=== PATIENT | male | born 1950 | race Caucasian/White ===

== ENCOUNTER → 2018-02-28 | Day surgery (SDC) | payer OTHER, MEDICARE ==
[2018-02-27 17:17] LABS: BASOPHILS % 0.3 % (0.0-1.0); EOSINOPHILS # (AUTO) 0.1 (0.0-0.4); EOSINOPHILS % 3.1 % (0.0-6.0); HEMATOCRIT 37.3 % (38.2-49.6); HEMOGLOBIN 12.7 g/dL (14.0-18.0); LYMPHOCYTES # (AUTO) 0.5 (1.0-3.2); LYMPHOCYTES % 15.4 % (18.0-39.1); MEAN CORPUSCULAR HEMOGLOBIN 31.9 pg (28-32); MEAN CORPUSCULAR VOLUME 93.7 fL (81-99); MONOCYTES # (AUTO) 0.6 (0.2-0.8); MONOCYTES % 18.5 % (4.4-11.3); NEUTROPHILS % 62.4 % (38.7-80.0); PLATELET COUNT 126 x10e3/uL (140-360); RED BLOOD COUNT 3.98 x10e6/uL (4.3-5.7); RED CELL DISTRIBUTION WIDTH 12.5 % (11.7-14.4)
[2018-02-27 17:36] LABS: ALANINE AMINOTRANSFERASE 30 IU/L (0-55); ALBUMIN 3.5 g/dL (3.5-5.0); ALBUMIN/GLOBULIN RATIO 0.9 (0.8-2.0); ALKALINE PHOSPHATASE 67 IU/L (40-150); ANION GAP 12.4 mmol/L (8-16); BLOOD UREA NITROGEN 14 mg/dL (7-26); BUN/CREATININE RATIO 18 (6-25); CALCIUM 9.2 mg/dL (8.4-10.2); CARBON DIOXIDE 28 mmol/L (22-29); CHLORIDE 101 mmol/L (98-107); CHOL/HDL RATIO 2.9 (3.9-4.7); CHOLESTEROL 163 MD/DL (0-199); EST GLOMERULAR FILTRATION RATE > 60 ML/MIN (60-); GLUCOSE 85 mg/dL (74-118); HDL CHOLESTEROL 57 MG/DL (40-60); LDL CHOLESTEROL 93 MG/DL (60-130); POTASSIUM 4.4 mmol/L (3.5-5.1); SODIUM 137 mmol/L (136-145); TRIGLYCERIDES 67 MG/DL (0-149)
[2018-02-28] VITALS (9 sets, daily range): BP systolic 134–158; BP diastolic 64–98
[~2018-02-28] VITALS: Ht 177.8 cm; Wt 59.0 kg
[~2018-02-28] MED LIST: ACETAMINOPHEN325 M1 PO; ALPRAZOLAM 0.5 MG TAB ONE; DIPHENHYDRAMINE HCL 25 MG CAP ONE; FENTANYL CITRATE/PF 100MCG/2 ML INJ ONE; HEPARIN SOD (PORCINE) 1000 UNIT/ML 30ML ONE; HEPARIN SOD/SOD CHLORIDE 2,000 ML ONE; IOPAMIDOL 370 MG/ML 200 ML INFUS..BTL INJ ONE; LIDOCAINE HCL 2% LOCAL 20 ML VIAL ONE; MIDAZOLAM HCL 2 MG/2 ML VIAL ONE; NITROGLYCERIN/D5W 200 MCG/ML 250 ML ONE; OPANA10 MG PO; SODIUM CHLORIDE 0.9% 1000ML 1,000 ML ONE; VERAPAMIL HCL 2.5 MG/ML 2 ML VIAL ONE
--- OUTSIDE RECORDS SUMMARY | 2018-02-28 11:43 | XMS REPORT | Summary of Care ---
Author Author [facility] Organization [facility] Address Unknown Phone Unavailable Encounter FABIO Lewis(TRAE) [id number] Date(s): 09/11/16 - 09/11/16 [facility] [address], [place], [place] [address]- [phone] Discharge Diagnosis: Contusion of rib on right side Discharge Disposition: Home or Self Care Attending Physician: Adam Schmidt MD Vital Signs Most recent to 1 oldest [Reference Range]: Height 177.8 cm (09/11/16 3:08 PM) Temperature Oral 97.6 DegF [96.4-99.1 DegF] (09/11/16 3:08 PM) Blood Pressure 166/77 mmHg [90-140/60-90 mmHg] *HI* (09/11/16 3:08 PM) Respiratory Rate 20 BRMIN [14-20 BRMIN] (09/11/16 3:08 PM) Peripheral Pulse 61 bpm Rate [60-100 bpm] (09/11/16 3:08 PM) Weight 61.364 kg (09/11/16 3:08 PM) Body Mass Index 19.41 m2 (09/11/16 3:08 PM) Problem List No data available for this section Allergies, Adverse Reactions, Alerts Substance Reaction Severity Status NKDA Active Medications ketOROLAC 15 mg/mL injectable solution 15 mg, 0.5 mL, Route: IM, Drug form: INJ, ONCE, Dosing Weight 61.364, kg, Priori ty: STAT, Start date: 09/11/16 17:23:00 CDT, Stop date: 09/11/16 17:23:00 CDT Notes: (Same as:Toradol) IV bolus must be given >15 seconds. Give IM administration slowly and deeply into the muscle.Not for use > 4 days MEDICATION WASTE Product Size: 30 mgProduct Wasted: 15 mg Start Date: 09/11/16 Stop Date: 09/11/16 Status: Completed [place] 10/325 oral tablet 1 tab, Route: PO, Drug Form: TAB, Dosing Weight 61.364, kg, ONCE, STAT, Start da te: 09/11/16 16:34:00 CDT, Stop date: 09/11/16 16:34:00 CDT Start Date: 09/11/16 Stop Date: 09/11/16 Status: Completed Results No data available for this section Immunizations No data available for this section Procedures Procedure Date Related Diagnosis Body Site Laminectomy1 1lumbar Social History Social History Type Response Smoking Status Current every day smoker; Type: Cigarettes; Previous treatment: None; Ready to change: No; Concerns about tobacco use in household: No; Exposure to Tobacco Smoke None; Cigarette Smoking Last 365 Days No; Reg Smoking Cessation Counseling No Assessment and Plan No data available for this section
--- OUTSIDE RECORDS SUMMARY | 2018-02-28 11:43 | XMS REPORT | Continuity of Care Document ---
Author Author [facility] rene [facility] Address Unknown Phone Unavailable Problems Problem Status Onset Date Classification Date Reported Comments Source FALL/RIB PAIN Active 09/11/2016 [facility] Discharge Diagnosis: Contusion of rib on right side 09/11/2016 09/14/2016 [facility] Medications Medication Details Route Status Patient Instructions Ordering Provider Order Date Source ketOROLAC 15 mg/mL injectable solution 15 mg, 0.5 mL, Route: IM, Drug form: INJ, ONCE, Dosing Weight 61.364, kg, Priority: STAT, Start date: 09/11/16 17:23:00 CDT, Stop date: 09/11/16 17:23:00 CDTNotes: (Same as:Toradol) IV bolus must be given >15 seconds. Give IM administration slowly and deeply into the muscle. Not for use > 4 days MEDICATION WASTE Product Size: 30 mg Product Wasted: 15 mg Inactive 09/11/2016 [facility] Acetaminophen 325 MG / Hydrocodone Bitartrate 10 MG Oral Tablet [[place] 10/325] 1 tab, Route: PO, Drug Form: TAB, Dosing Weight 61.364, kg, ONCE, STAT, Start date: 09/11/16 16:34:00 CDT, Stop date: 09/11/16 16:34:00 CDT Inactive 09/11/2016 [facility] Allergies, Adverse Reactions, Alerts Substance Category Reaction Severity Reaction type Status Date Reported Comments Source Immunizations Immunization Date Given Site Status Last Updated Comments Source Results Order Name Results Value Reference Range Date Interpretation Comments Source Ribs unilateral 3 views w PA chest DX Ribs unilateral 3 views w PA chest DX Clinical Indication: - Fall, right Ribcage pain. Comparison: None. FINDINGS: PA Chest: The single view of the chest shows hyperinflation of lungs. Some upper lung zone emphysema is seen. 7 x 7 mm right upper lobe calcified granuloma is noted. No interstitial or airspace opacities. No pleural effusions or pneumothorax. The heart size and mediastinal contour is normal. Right Rib Series: The AP and oblique views of the ribs show no definite rib fractures. The costovertebral junctions are unremarkable. If there is further concern, followup radiographs or bone scan may be performed for complete assessment. IMPRESSION: 1. No definite right rib fractures. 2. Clear chest. SL: [id number] 09/11/2016 - - Read by: Jessee Franz MD Dictated Date/time: 09/11/16 16:10 Electronically Signed by: Jessee Franz MD 09/11/16 16:12 FINAL REPORT [facility] Vital Signs Vital Sign Value Date Comments Source BMI Calculated 19.41 09/11/2016 [facility] Weight 61.364 09/11/2016 [facility] Systolic (mm Hg) 166 09/11/2016 [facility] Diastolic (mm Hg) 77 09/11/2016 [facility] Heart Rate 61 09/11/2016 [facility] Temperature Oral (F) 97.6 F 09/11/2016 [facility] Respitory Rate 20 09/11/2016 [facility] Height 177.8 cm 09/11/2016 [facility] Encounters Location Location Details Encounter Type Encounter Number Reason For Visit Attending Provider ADM Date DC Date Status Source [facility] [id number] Adam Schmidt 09/11/2016 09/11/2016 [facility] Procedures Procedure Code Date Perfomer Comments Source Laminectomy<sup>1</sup> [id number] lumbar [facility]
--- OUTSIDE RECORDS SUMMARY | 2018-02-28 11:43 | XMS REPORT | Summary of Care ---
Author Author MAGALI SILVERMAN D.O. Organization Unknown Address [facility] Phone Unavailable Care Team Providers Care Supervisor Production Managing Name Role Phone JEANNA CONDE M.D. 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 * Start : 03-Mar-2017 Active Allergies and Adverse Reactions Name Dates Details Allergy history not documented Status: Procedures Procedure Dates Details Procedures not documented Immunization Name Dates Details Immunizations not documented Social History Name Dates Details Unknown if ever smoked Vital Signs Date Test Result Details No Known Vitals to report Results Date Description Value Details [id number] [U] XRAY HAND MIN 3 VWS RIGHT [id number] XR HAND MIN 3 VWS RIGHT EXAM: XR HAND MIN 3 VWS RIGHT DATE: 12/21/2017 4:31 PM CDT INDICATION: Closed displaced fracture of base of fifth metacarpal bone of right hand COMPARISON: 11/21/2017 TECHNIQUE: PA, lateral and oblique radiographs of the right hand DISCUSSION: There is unchanged alignment of fifth metacarpal base intra-articular fracture. Progressive bony remodeling and callus formation is present.No new fracture seen.Minimal mineralization along the radial aspect of the fifth second MCP joint is similar to the prior study.Mild diffuse osteopenia.Joint spaces are preserved. IMPRESSION:Maintained alignment of healing fifth metacarpal base intra-articular fracture. 12/22/2017 11:45 AM CDT Pauly Vickers Plan of Care Name Dates Details Planned Observations Planned Goals not documented Instructions Name Dates Details Instructions not documented Encounters Appointment; LINN MASTERS P.A. Encounter Diagnosis: Problem not documented On: 23-Nov-2017 8:30 Appointment; MAGALI SILVERMAN D.O. Encounter Diagnosis: Problem not documented On: 21-Dec-2017 14:45
--- OUTSIDE RECORDS SUMMARY | 2018-02-28 11:43 | XMS REPORT ---
Author Author [facility] Address Unknown Phone Unavailable Care Team Providers Care Gluing Machine Feeder Name Role Phone Unavailable Unavailable Payers Payer Name Policy Type Policy Number Effective Date Expiration Date Problems This patient has no known problems. Allergies, Adverse Reactions, Alerts Allergy Name Allergy Type Status Severity Reaction(s) Onset Date Inactive Date Treating Clinician Comments No Known Allergies DA Active U 2015-08-25 00:00:00 Medications This patient has no known medications.
--- NOTE | 2018-02-28 14:00 | NUR ---
1400 Received pt form [facility] no fix Dr Alvarado. 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 Had Rt TR band approach with 14cc in balloon .Ok to titrate at 1500 . Back to baseline PEERLA Resp shallow and regular 98% on room air. Abd soft and non tender denies necessity to defecate or urinate. Matthew femoral dressing dry and intact. Iv infusing w/o s/s infiltration. 1500 Titration started -3cc positive 11cc no bleeding ,adequate radial pulse 98% sat 1515 Titration continued -3cc positive 7cc no bleeding ,adequate radial pulse 98% sat 1530 Titration continued -3cc positive 4ccno bleeding ,adequate radial pulse 98% sat 1545 Titration completed no signs bleeding or hematoma, 2x2 sterile dressing and tegederm with coban Iv removed site w/o s/s infiltration coban and 2x2 gauze. Splint reapplied to rt tr band site and instruction given to keep on tomorrow. 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 Discharge plans discussed with family and pt and pt has copies of POC and knows importance of followup care in 2wks and to call for appt. Tolerating po intake and urinating qs
--- NOTE | 2018-02-28 15:34 | Operative Report ---
DATE OF PROCEDURE: February 28, 2018 INDICATIONS: Coronary artery disease, abnormal stress test. PROCEDURES PERFORMED 1. Left heart catheterization, selective coronary angiography, left ventriculography. 2. Deployment of right wrist transradial band. COMPLICATIONS: None. RECOMMENDATIONS: Medical therapy. Access was obtained in the right radial artery. A 5-Italian sheath was placed. Diagnostic coronary angiogram revealed 50% left anterior descending artery proximal stenosis. Remaining vessel had mild 20% stenosis. Ostial first obtuse marginal branch 50% stenosis. Distal circumflex 70% stenosis to 1.5 mm balloon. Right coronary artery had mild disease. LV ejection fraction 60%. LV end-diastolic pressure of 10. No gradient across the aortic valve on pullback. Right wrist guide and sheath were removed. TR band applied. Patient discharged home same day. Job#: [id number]
== END | disposition home or self-care (01) ==
LOC: CATH LAB 11:41
PROVIDERS: ATTEND Internal Medicine Interventional Cardiology
DX: I25.119 Atherosclerotic heart disease of native coronary artery with unspecified angina pectoris (principal); I73.9 Peripheral vascular disease, unspecified; R94.39 Abnormal result of other cardiovascular function study; Z01.810 Encounter for preprocedural cardiovascular examination
CPT/HCPCS: 36415; 80053; 80061; 85025; 93458; C1887; J1644; J2001; J2250; J7030; Q9967